=== PATIENT | male | born 1965 | race Caucasian/White ===

== ENCOUNTER 2020-06-06 14:19 | Outpatient (CLI) | payer BC ==
--- NOTE | 2020-06-06 15:12 | RAD ---
LEFT FOOT THREE VIEWS: History: Pain around fifth metatarsal region, no injury. FINDINGS: There are some minimal arthritic changes of the first metatarsal phalangeal joint. Small metallic mar ker is seen at the level of the fifth metatarsal phalangeal joint. No underlying bony abnormalities i n this region. Calcaneal spur at the insertion of the plantar fascia is noted. IMPRESSION: No acute bony changes. POS: OFF
== END 2020-06-06 14:20 | disposition home or self-care (01) ==
LOC: BICRAD 14:19
PROVIDERS: ATTEND Podiatrist
DX: M79.672 Pain in left foot (principal)

== ENCOUNTER 2022-10-10 09:24 | Inpatient (IN) | payer BC ==
[2022-10-10 09:58] LABS: #Monocytes 0.6 thou/uL (0.11-0.59); #Neutrophils 4.9 thou/uL (1.40-6.50); %Basophils 0.4 % (0.0-1.0); %Eosinophils 0.6 % (0.0-10.0); %Lymphocytes 22.2 % (21.0-51.0); %Monocytes 7.7 % (0.0-10.0); %Neutrophils 68.7 % (42.0-75.0); Hemoglobin 16.4 g/dL (14.0-18.0); Mean Corpuscular HGB CONC 33.4 g/dL (32.0-36.0); Mean Corpuscular Hemoglobin 30.2 pg (27.0-31.0); Mean Corpuscular Volume 90.4 fl (78.0-98.0); Mean Platelet Volume 10.7 fL (7.4-10.4); Platelet Count 164 10x3/uL (130-400); RBC Distribution Width 12.6 % (11.5-14.5); Red Blood Cell (RBC) Count 5.43 mill/uL (4.70-6.10); White Blood Cell (WBC) Count 7.1 10x3/uL (4.8-10.8)
[2022-10-10 10:20] LABS: ALT (SGPT) 48 U/L (8-55); AST (SGOT) 14 U/L (5-34); Albumin 3.6 g/dL (3.5-5.0); Alkaline Phosphatase 91 U/L (40-110); Anion Gap 10 mmol/L (10-20); BUN (Urea Nitrogen) 11 mg/dL (8.4-25.7); Bilirubin, Total 0.7 mg/dL (0.2-1.2); Calc. Creatinine Clearance 0 mL/min (70-130); Calcium 8.8 mg/dL (7.8-10.44); Carbon Dioxide 29 mmol/L (22-29); Chloride 102 mmol/L (98-107); Estimated GFR 107; Globulin 2.8 g/dL (2.4-3.5); Glucose 155 mg/dL (70-105); Potassium 3.5 mmol/L (3.5-5.1); Protein, Total 6.4 g/dL (6.0-8.3); Sodium 137 mmol/L (136-145)
[2022-10-10] MEDS ORDERED: Furosemide 40 MG/4 ML VIAL ONE (10:55)
[2022-10-10] MEDS ORDERED: Ondansetron ODT 4 MG TAB PO PRN (11:30)
[2022-10-10] MEDS ORDERED: Ondansetron PF 4 MG/2 ML Vial IVP PRN (11:30)
[2022-10-10] MEDS ORDERED: Aspirin Chewable 81 MG TAB PO SCH (11:45)
[2022-10-10 12:38] LABS: Hemoglobin A1c 9.5 % (4.0-6.0)
[2022-10-10 12:53] LABS: Magnesium 1.7 mg/dL (1.6-2.6)
[2022-10-10 12:58] LABS: Troponin I Less than 0.010 ng/mL (< 0.028)
[2022-10-10 13:30] VITALS: BMI 32.5
[2022-10-10 15:57] LABS: Troponin I Less than 0.010 ng/mL (< 0.028)
[2022-10-10] MEDS ORDERED: Dextrose 50% Abboject 50 ML SYRINGE SLOW IVP PRN (16:39)
[2022-10-10] MEDS ORDERED: Glucagon 1 MG/ML KIT IM PRN (16:39)
[2022-10-10] MEDS ORDERED: HumaLOG 300 UNITS/3 ML VIAL SC PRN ×2 (16:39)
[2022-10-10] MEDS ORDERED: Dextrose 5% in Water 1,000 ML IV PRN (16:39)
[2022-10-10] MEDS: Atorvastatin Calcium 40 MG TAB PO SCH (20:37)
[2022-10-10] MEDS: Acetaminophen 325 MG TAB PO PRN (20:41)
[2022-10-11 05:05] LABS: #Eosinphils 0.1 thou/uL (0.0-0.7); #Monocytes 0.7 thou/uL (0.11-0.59); #Neutrophils 4.1 thou/uL (1.40-6.50); %Basophils 0.4 % (0.0-1.0); %Eosinophils 0.7 % (0.0-10.0); %Lymphocytes 30.1 % (21.0-51.0); %Monocytes 9.5 % (0.0-10.0); Hemoglobin 16.7 g/dL (14.0-18.0); Mean Corpuscular HGB CONC 32.7 g/dL (32.0-36.0); Mean Corpuscular Hemoglobin 29.8 pg (27.0-31.0); Mean Corpuscular Volume 91.1 fl (78.0-98.0); Mean Platelet Volume 10.8 fL (7.4-10.4); Platelet Count 164 10x3/uL (130-400); RBC Distribution Width 12.6 % (11.5-14.5)
[2022-10-11 05:29] LABS: Anion Gap 14 mmol/L (10-20); BUN (Urea Nitrogen) 13 mg/dL (8.4-25.7); Calc. Creatinine Clearance 163 mL/min (70-130); Carbon Dioxide 27 mmol/L (22-29); Chloride 103 mmol/L (98-107); Potassium 3.8 mmol/L (3.5-5.1); Sodium 140 mmol/L (136-145)
[2022-10-11 05:30] LABS: Calcium 8.6 mg/dL (7.8-10.44); Estimated GFR 101; Glucose 185 mg/dL (70-105)
[2022-10-11] MEDS: Aspirin Chewable 81 MG TAB PO SCH (08:30)
[2022-10-11] MEDS: Empagliflozin 25 MG TAB PO SCH (08:30)
[2022-10-11] MEDS: DULoxetine 30 MG CAP PO SCH (08:30)
[2022-10-11] MEDS: Tamsulosin HCl 0.4 MG CAP PO SCH (08:30)
[2022-10-11] MEDS ORDERED: Metoprolol Tartrate 5 MG/5 ML VIAL IVP SCH (16:30)
[2022-10-11] MEDS ORDERED: Rivaroxaban 10 MG TAB PO SCH (17:00)
[2022-10-11] MEDS: Acetaminophen 325 MG TAB PO PRN (21:11)
[2022-10-11] MEDS: Sotalol HCl 80 MG TAB PO SCH (21:11)
[2022-10-11] MEDS: Atorvastatin Calcium 40 MG TAB PO SCH (21:11)
[2022-10-12 05:26] LABS: #Eosinphils 0.1 thou/uL (0.0-0.7); #Monocytes 0.7 thou/uL (0.11-0.59); #Neutrophils 4.4 thou/uL (1.40-6.50); %Basophils 0.5 % (0.0-1.0); %Eosinophils 0.9 % (0.0-10.0); %Lymphocytes 31.8 % (21.0-51.0); %Monocytes 9.2 % (0.0-10.0); %Neutrophils 57.2 % (42.0-75.0); Hemoglobin 16.6 g/dL (14.0-18.0); Mean Corpuscular HGB CONC 32.7 g/dL (32.0-36.0); Mean Corpuscular Hemoglobin 30.3 pg (27.0-31.0); Mean Corpuscular Volume 92.7 fl (78.0-98.0); Mean Platelet Volume 10.7 fL (7.4-10.4); Platelet Count 173 10x3/uL (130-400); RBC Distribution Width 12.6 % (11.5-14.5); Red Blood Cell (RBC) Count 5.47 mill/uL (4.70-6.10); White Blood Cell (WBC) Count 7.7 10x3/uL (4.8-10.8)
[2022-10-12 05:52] LABS: Anion Gap 11 mmol/L (10-20); BUN (Urea Nitrogen) 13 mg/dL (8.4-25.7); Calc. Creatinine Clearance 153 mL/min (70-130); Calcium 8.9 mg/dL (7.8-10.44); Carbon Dioxide 29 mmol/L (22-29); Chloride 103 mmol/L (98-107); Estimated GFR 94; Glucose 206 mg/dL (70-105); Potassium 3.9 mmol/L (3.5-5.1); Sodium 139 mmol/L (136-145)
[2022-10-12] MEDS: Sotalol HCl 80 MG TAB PO SCH (06:41)
[2022-10-12] MEDS ORDERED: Insulin Glargine 30 UNITS/0.3 ML VIAL SC SCH (09:00)
[2022-10-12] MEDS ORDERED: Ketamine 50 MG/ML (10ML VIAL) ONE (09:06)
[2022-10-12] MEDS ORDERED: PROPOFOL 200 MG/20 ML VIAL ONE (09:07)
[2022-10-12] MEDS ORDERED: Lidocaine 1% PF 5 ML VIAL ONE (09:07)
[2022-10-12] MEDS: Aspirin Chewable 81 MG TAB PO SCH (10:34)
[2022-10-12] MEDS: Tamsulosin HCl 0.4 MG CAP PO SCH (10:35)
[2022-10-12] MEDS: DULoxetine 30 MG CAP PO SCH (10:35)
[2022-10-12] MEDS: Empagliflozin 25 MG TAB PO SCH (10:35)
[2022-10-12 13:28] VITALS: BP 161/89; TEMP 97.9
== END 2022-10-12 16:28 | disposition home or self-care (01) | DRG 310 ==
LOC: ERS 09:24 → 2SW 12:42 → OBSVTOIN 10-12 15:53
PROVIDERS: ADMIT Internal Medicine; ATTEND Internal Medicine
PROC: 5A2204Z Restoration of Cardiac Rhythm, Single (ICD-10-PCS; principal; 2022-10-12)
PROC: B24BZZ4 Ultrasonography of Heart with Aorta, Transesophageal (ICD-10-PCS; 2022-10-12)
DX: I48.0 Paroxysmal atrial fibrillation (principal); E11.9 Type 2 diabetes mellitus without complications; I48.4 Atypical atrial flutter; K21.9 Gastro-esophageal reflux disease without esophagitis; I10 Essential (primary) hypertension; C67.9 Malignant neoplasm of bladder, unspecified; F32.A Depression, unspecified; E66.9 Obesity, unspecified; I70.0 Atherosclerosis of aorta; I07.1 Rheumatic tricuspid insufficiency; Z86.79 Personal history of other diseases of the circulatory system; Z98.890 Other specified postprocedural states; Z79.899 Other long term (current) drug therapy; Z79.4 Long term (current) use of insulin; Z79.01 Long term (current) use of anticoagulants; Z79.84 Long term (current) use of oral hypoglycemic drugs; Z87.891 Personal history of nicotine dependence; Z68.32 Body mass index [BMI] 32.0-32.9, adult; Z99.89 Dependence on other enabling machines and devices
CPT/HCPCS: 36415; 36416; 71045; 78452; 80048; 80053; 83036; 83735; 83880; 84443; 84484; 85025; 85379; 92960; 93005; 93010; 93017; 93312; 96374; 96375; A9500; G0378; J0153; J1815; J1940; J2704